=== PATIENT | male | born 1955 | race African-American/Black ===

== ENCOUNTER → 2019-04-15 | Outpatient (CLI) | payer MEDICARE ==
[~2019-04-15] MED LIST: AMARYL 2MG T2 MG/TAB PO; AMBIEN 10MG10 MG PO; AMBIEN 5MG TABLE5 MG PO; ASPIRIN E.C. 8181 MG PO; BYDUREON; BYDUREON INJ; CELEBREX; CELEBREX100 MG PO; DIOVAN 160MG160 MG PO; DIOVAN160 M1 PO; ENULOSE10 GM/151 PO; FERRATE325 MG PO; FERROUS SULFAT324 MG PO; FLOMAX 0.40.4 MG/CAP PO; FOLIC ACID 40400 MCG PO; FUROSEMIDE20 MG PO; GRALISE PO; IRON325 M1 PO; JANUVIA 100MG100 MG PO; JANUVIA100 MG PO; K-DUR 2020 MEQ PO; LANTUS100 U/ML SC; LASIX 20MG TABL20 MG PO; LIDODERM PATCH TP; LISINOPRIL40 MG PO; LOPRESSOR 550 MG/TAB PO; MAG-OX 400400 MG PO; METFORMIN1000 MG PO; METFORMIN500 MG PO; MYFORTIC360 MG PO; NEURONTIN300 MG PO; NEURONTIN600 MG/TAB PO; NORVASC 10MG10 MG PO; NOVOLOG 100U100 U/M1 SC; OMEPRAZOLE20 M1 PO; OMEPRAZOLE40 MG PO; OXYCODONE10 MG PO; PAIN MED; PEGASYS180 MCG/ML MR; PHARMASSURE MA500 MG PO; PREDNISONE1 MG PO; PRIL40 PO; PRILOSEC PO; PROGRAF 1MG1 MG PO; PROSCAR 5MG5 MG PO; PROTONIX40 MG PO; RIBASPHERE600 MG PO; ULTRAM 50MG TAB50 MG PO; VITAMIN C500 MG PO; VITAMIN D32000 IU PO; XIFAXAN200 MG PO; XIFAXAN550 MG PO; ZESTRIL40 MG PO; [UNRECOGNIZED DRUG - OTHER] PO
== END ==
LOC: SUN.DIA 08:13
DX: E11.40 Type 2 diabetes mellitus with diabetic neuropathy, unspecified (principal); E78.5 Hyperlipidemia, unspecified; I10 Essential (primary) hypertension; Z79.4 Long term (current) use of insulin
CPT/HCPCS: G0108

== ENCOUNTER → 2019-04-29 | Outpatient (CLI) | payer MEDICARE | LOC: SUN.DIA 10:02 | DX: E11.40 Type 2 diabetes mellitus with diabetic neuropathy, unspecified (principal); E78.5 Hyperlipidemia, unspecified; I10 Essential (primary) hypertension; Z79.4 Long term (current) use of insulin | CPT/HCPCS: G0109 ==

== ENCOUNTER → 2019-05-05 | Outpatient (CLI) | payer MEDICARE | LOC: SUN.DIA 08:36 | DX: E11.40 Type 2 diabetes mellitus with diabetic neuropathy, unspecified (principal); E78.5 Hyperlipidemia, unspecified; I10 Essential (primary) hypertension ==

== ENCOUNTER → 2019-05-06 | Outpatient (CLI) | payer MEDICARE | LOC: SUN.DIA 10:08 | DX: E11.40 Type 2 diabetes mellitus with diabetic neuropathy, unspecified (principal); Z79.4 Long term (current) use of insulin; E78.5 Hyperlipidemia, unspecified; I10 Essential (primary) hypertension | CPT/HCPCS: G0109 ==

== ENCOUNTER → 2019-05-13 | Outpatient (CLI) | payer MEDICARE | LOC: SUN.DIA 10:49 | DX: E78.5 Hyperlipidemia, unspecified (principal); I10 Essential (primary) hypertension; E11.9 Type 2 diabetes mellitus without complications; E11.40 Type 2 diabetes mellitus with diabetic neuropathy, unspecified | CPT/HCPCS: G0109 ==

== ENCOUNTER → 2019-06-25 | Outpatient (CLI) | payer MEDICARE | LOC: SUN.DIA 05-20 11:21 → DIA.ED 06-23 15:42 | DX: E11.40 Type 2 diabetes mellitus with diabetic neuropathy, unspecified (principal); E78.5 Hyperlipidemia, unspecified; I10 Essential (primary) hypertension; Z79.4 Long term (current) use of insulin | CPT/HCPCS: G0109 ==

== ENCOUNTER 2021-07-03 00:08 | Emergency (ER) | payer MEDICARE ==
[~2021-07-03] VITALS: Ht 182.9 cm; Wt 90.9 kg
[2021-07-03 00:16] VITALS: TEMP 98.1
[2021-07-03 00:28] LABS: BASO % 0.4 % (0.0-2.0); EOS # 0.3 (0.0-0.7); EOS % 3.4 % (0-4.0); GRAN # 4.9 (1.4-6.5); GRAN % 63.8 % (42.2-75.2); HEMATOCRIT 41.7 % (42.0-52.0); HEMOGLOBIN 13.9 g/dl (13.5-18.0); LYMPH # 1.9 (1.2-3.4); LYMPH % 24.3 % (20.0-51.0); MEAN CELL VOLUME 89 fl (80.0-100.0); MEAN CORPUSCULAR HEMOGLOBIN 30 pg (27.0-31.0); MEAN CORPUSCULAR HGB CONC 33 g/dl (33.0-37.0); MEAN PLATELET VOLUME 9.3 fl (7.4-10.4); MONO # 0.6 (0.1-0.6); PLATELET COUNT 247 K/mm3 (130-400)
[2021-07-03] MEDS ORDERED: VITAMIN D31000 I1 PO (00:34)
[2021-07-03] MEDS ORDERED: GLUCOPHAGE500 MG/TAB PO (00:35)
[2021-07-03] MEDS ORDERED: PRINIVIL40 MG PO (00:36)
[2021-07-03 00:38] LABS: ALBUMIN 4.6 gm/dL (3.5-5.0); BILIRUBIN,TOTAL 0.4 mg/dL (0.0-1.0); CALCIUM 9.7 mg/dL (8.4-10.2); CREATININE, serum 1.51 (0.66-1.25); POTASSIUM 5.3 mmol/L (3.4-5.0); TOTAL PROTEIN 8.5 gm/dL (6.4-8.2)
[2021-07-03] MEDS ORDERED: TRULICITY1.5 MG/0.5 SQ (00:38)
[2021-07-03 03:11] VITALS: BP 130/79; PULSE 90
== END 2021-07-03 03:16 | disposition home or self-care (01) ==
LOC: COL.ER 00:08
PROVIDERS: Personal Emergency Response Attendant
DX: T78.3XXA Angioneurotic edema, initial encounter (principal); E87.5 Hyperkalemia; N28.9 Disorder of kidney and ureter, unspecified; I10 Essential (primary) hypertension; E11.9 Type 2 diabetes mellitus without complications; Z79.4 Long term (current) use of insulin; Z79.899 Other long term (current) drug therapy
CPT/HCPCS: J1200; J2930

== ENCOUNTER → 2021-07-19 | Outpatient (CLI) | payer MEDICARE ==
[~2021-07-19] MED LIST changes: +GLUCOPHAGE500 MG/TAB PO; +PRINIVIL40 MG PO; +TRULICITY1.5 MG/0.5 SQ; +VITAMIN D31000 I1 PO
== END ==
LOC: COL.VAS 12:56
DX: I73.9 Peripheral vascular disease, unspecified (principal); E11.42 Type 2 diabetes mellitus with diabetic polyneuropathy; M79.606 Pain in leg, unspecified

== ENCOUNTER → 2021-12-08 | Outpatient (CLI) | payer MEDICARE | LOC: COL.RAD 14:26 | DX: M25.551 Pain in right hip (principal) ==

== ENCOUNTER → 2021-12-08 | Outpatient (CLI) | payer MEDICARE | LOC: MHCPAIN 12:52 | DX: M51.36 Other intervertebral disc degeneration, lumbar region (principal); M48.061 Spinal stenosis, lumbar region without neurogenic claudication; M79.604 Pain in right leg; M25.551 Pain in right hip ==

== ENCOUNTER → 2022-01-08 | Outpatient (CLI) | payer MEDICARE | LOC: MHCPAIN 08:50 | DX: M54.16 Radiculopathy, lumbar region (principal); M53.3 Sacrococcygeal disorders, not elsewhere classified | CPT/HCPCS: J1100; Q9967 ==

== ENCOUNTER → 2022-02-06 | Outpatient (CLI) | payer MEDICARE | LOC: MHCPAIN 13:19 | DX: M54.16 Radiculopathy, lumbar region (principal); M51.36 Other intervertebral disc degeneration, lumbar region; M48.061 Spinal stenosis, lumbar region without neurogenic claudication | CPT/HCPCS: G0463 ==

== ENCOUNTER → 2022-02-16 | Outpatient (CLI) | payer MEDICARE | LOC: MHCPAIN 11:21 | DX: M54.16 Radiculopathy, lumbar region (principal); M51.36 Other intervertebral disc degeneration, lumbar region; M48.061 Spinal stenosis, lumbar region without neurogenic claudication | CPT/HCPCS: G0463 ==

== ENCOUNTER → 2022-02-26 | Outpatient (CLI) | payer MEDICARE | LOC: MHCPAIN 12:41 | DX: M53.3 Sacrococcygeal disorders, not elsewhere classified (principal); M47.817 Spondylosis without myelopathy or radiculopathy, lumbosacral region; M54.16 Radiculopathy, lumbar region | CPT/HCPCS: J1100; Q9967 ==

== ENCOUNTER → 2022-04-03 | Outpatient (CLI) | payer MEDICARE | LOC: MHCPAIN 14:23 | DX: M53.3 Sacrococcygeal disorders, not elsewhere classified (principal); M25.551 Pain in right hip; M54.16 Radiculopathy, lumbar region | CPT/HCPCS: G0463 ==

== ENCOUNTER → 2022-07-03 | Outpatient (CLI) | payer MEDICARE | LOC: MHCPAIN 13:24 | DX: M51.16 Intervertebral disc disorders with radiculopathy, lumbar region (principal); M53.3 Sacrococcygeal disorders, not elsewhere classified ==

== ENCOUNTER → 2023-02-14 | Outpatient (CLI) | payer MEDICARE | LOC: COL.RAD 11:33 | DX: Z94.4 Liver transplant status (principal) ==

== ENCOUNTER → 2024-03-05 | Outpatient (CLI) | payer OTHER | LOC: MHCPAIN 14:27 | DX: M54.16 Radiculopathy, lumbar region (principal); M51.36 Other intervertebral disc degeneration, lumbar region; M75.121 Complete rotator cuff tear or rupture of right shoulder, not specified as traumatic | CPT/HCPCS: G0463 ==

== ENCOUNTER → 2024-03-11 | Outpatient (CLI) | payer OTHER ==
[~2024-03-11] MED LIST changes: +Iohexol 300 - 10 ML VIAL ONE; +Lidocaine PF 1% (10 MG/ML) 5 ML VIAL ONE
== END ==
LOC: MHCPAIN 13:22
DX: M54.16 Radiculopathy, lumbar region (principal)
CPT/HCPCS: J1100; Q9967

== ENCOUNTER → 2024-05-12 | Outpatient (CLI) | payer OTHER ==
[~2024-05-12] MED LIST changes: -Iohexol 300 - 10 ML VIAL ONE; -Lidocaine PF 1% (10 MG/ML) 5 ML VIAL ONE
== END ==
LOC: MHCPAIN 12:55
DX: M54.16 Radiculopathy, lumbar region (principal); M51.36 Other intervertebral disc degeneration, lumbar region; M75.121 Complete rotator cuff tear or rupture of right shoulder, not specified as traumatic
CPT/HCPCS: G0463

== ENCOUNTER → 2024-07-06 | Outpatient (CLI) | payer OTHER | LOC: MHCPAIN 13:46 | DX: M54.16 Radiculopathy, lumbar region (principal); M51.36 Other intervertebral disc degeneration, lumbar region; M75.121 Complete rotator cuff tear or rupture of right shoulder, not specified as traumatic | CPT/HCPCS: G0463 ==